=== PATIENT | male | born 1945 | race Caucasian/White ===

== ENCOUNTER 2021-10-19 14:20 | Emergency (ER) | payer MEDICARE ==
[2021-10-19] MEDS ORDERED: Atropine 0.1 MG/ML 10 ML Syringe IVPUSH ONE ×2 (14:28→15:07)
[2021-10-19] MEDS ORDERED: Sodium Chloride 0.9% 500 ML IV ONE ×2 (14:38→16:34)
[2021-10-19] MEDS ORDERED: Diphtheria,Pertussis(Acell),Tetanus Vaccine 0.5 ML Syringe IM ONE (16:18)
[2021-10-20] MEDS ORDERED: Midodrine 5 MG Tab PO ONE (16:33)
== END 2021-10-19 19:28 | disposition home or self-care (01) ==
LOC: JP.ED 14:20
DX: R00.1 Bradycardia, unspecified (principal); I95.1 Orthostatic hypotension; G20 Parkinson's disease; Z88.1 Allergy status to other antibiotic agents; Z79.899 Other long term (current) drug therapy; Z79.82 Long term (current) use of aspirin; Z20.822 Contact with and (suspected) exposure to COVID-19; Z23 Encounter for immunization
CPT/HCPCS: 36415; 70450; 80048; 83735; 84443; 85025; 90471; 93005; 96374; 99285; A9270; J0461; U0002